=== PATIENT | male | born 1970 | race African-American/Black ===

== ENCOUNTER 2016-05-01 15:52 | Emergency (ER) ==
[2016-05-01] MEDS ORDERED: PHENERGAN IM ONE (17:58)
[2016-05-01] MEDS ORDERED: NUBAIN IM ONE (17:58)
--- NOTE | 2016-05-01 18:02 | PROVIDER DOCUMENTATION ---
HPI-EENT General - General Chief Complaint: Earache Stated Complaint: HEADACHE Time Seen by Provider: 05/01/16 17:51 Source: patient Allergies/Adverse Reactions: Patient Allergies Allergy/AdvReac Type Severity Reaction Status Date / Time No Known Allergies Allergy Verified 05/01/16 16:09 - History of Present Illness-EENT General Nature of Presenting Problem: This pt, who has a hx of migraines, presents today c complaints of R sided ear pain and migraine. He reports that he believes that his ear is infected which is making his migraine worse. He has tried taking alleve at home but this is not helping his symptoms. No other issues or complaints. EENT Location: reports: ear (R) Quality of Pain: reports: aching Severity: reports: moderate Onset/Duration: reports: 1 week ago Timing: reports: still present Prearrival Treatment: Initiated over the counter meds Similar Symptoms Previously?: Yes (migraine) Recently seen or treated by another doctor?: No Review of Systems - Adult - REVIEW OF SYSTEMS - ADULT Constitutional: reports: no symptoms reported. denies: chills, fever Eyes: reports: no symptoms reported. denies: discharge, dry eyes Ears, Nose, Mouth & Throat: reports: ear pain. denies: ear discharge, sinus problem, nose pain Cardiovascular: reports: no symptoms reported. denies: chest pain, edema Respiratory: reports: no symptoms reported. denies: chronic cough, cough Gastrointestinal: reports: no symptoms reported. denies: abdominal pain, hematemesis Genitourinary: reports: no symptoms reported. denies: dysuria, discharge Musculoskeletal: reports: no symptoms reported. denies: bone pain, back pain Integumentary: reports: no symptoms reported. denies: hives, hair loss Neurological: reports: headache/migraines. denies: ataxia, dizziness/vertigo Psychiatric: reports: no symptoms reported. denies: anxiety, anti-depressant use Endocrine: reports: no symptoms reported Hematologic/Lymphatic: reports: no symptoms reported Allergic/Immunologic: reports: no symptoms reported All Other Systems: Reviewed and Negative Past History - Adult - PAST MEDICAL HISTORY-ADULT Review of Records: reports: Old Records Reviewed, Nursing Assessment Review, Medications Reviewed, Social history reviewed & non-contributory. Major Childhood Illnesses: reports: denies history Cardiovascular: reports: denies history Respiratory: reports: denies history Gastrointestinal: reports: denies history Obstetrical/Gynecological: reports: denies history Genitourinary: reports: denies history Musculoskeletal: reports: denies history Neurological: reports: denies history Endocrine/Immune: reports: denies history Other Conditions: reports: denies history Physical Exam- EENT - Physical Exam EENT Initial Vital Signs Reviewed: Yes General Appearance: appears well, alert, no apparent distress Eye Exam: bilateral eye: normal inspection, PERRL, EOMI Ear Exam: right ear: erythema, swelling, tenderness, TM red, left ear: canal normal, TM normal, bilateral ear: auricle normal Nasal Exam: normal inspection Throat Exam: normal mouth inspection, pharynx normal Neck: non-tender, full range of motion, supple, normal inspection. negative: limited range of motion, lymphadenopathy, meningismus Respiratory: chest non-tender, lungs clear, normal breath sounds, no pleuratic chest pain, no respiratory distress, no accessory muscle use. negative: respiratory distress, decreased breath sounds, accessory muscle use Cardiovascular: normal peripheral pulses, regular rate, rhythm, no edema, no gallop, no JVD, no murmur. negative: bradycardia, tachycardia Abdominal Exam: normal bowel sounds, non tender, soft, no organomegaly, no pulsatile mass Lymphatic: no adenopathy Back Exam: normal inspection, no CVA tenderness, no vertebral tenderness Extremity: normal range of motion, non-tender, normal gait, normal inspection, no pedal edema, no calf tenderness, normal capillary refill, pelvis stable Integumentary: normal color, normal turgor, warm/dry Neurologic: user support analyst II-XII nml as tested, no motor/sensory deficits. negative: facial droop, focal weakness, motor weakness, sensory deficit Psych/Mental Status: AL, normal mood/affect, normal thought content, normal thought process, oriented x 3 Progress - PLAN OF CARE/RESULTS Progress/Plan/Lab Results: Orders Category Date Time Status Nalbuphine [Nubain] Med 05/01/16 17:58 Discontinued 10 mg IM NOW ONE Promethazine [Phenergan] Med 05/01/16 17:58 Discontinued 25 mg IM NOW ONE Vital Signs Temp Pulse Resp BP Pulse Ox 05/01/16 16:05 99.2 F 58 L 18 137/82 100 No Known Allergies Allergy (Verified 05/01/16 16:09) No Home Medications 05/01/16 Departure - Departure Time of Disposition Order: 18:01 DIAGNOSIS: Otitis media Qualifiers: Otitis media type: in diseases classified elsewhere Laterality: right Qualified Code(s): H67.1 - Otitis media in diseases classified elsewhere, right ear Migraine Qualifiers: Migraine type: unspecified Status migrainosus presence: without status migrainosus Intractability: not intractable Qualified Code(s): G43.909 - Migraine, unspecified, not intractable, without status migrainosus Disposition: HOME 01 Certified Medical Emergency: Urgent Condition: Good Additional Instructions: Take medication as prescribed. Follow up with your primary care provider. ED Follow Up Instructions: You have been treated by a care provider in the Emergency Department. These instructions are being provided to you so you can have an understanding of how to care for yourself upon discharge. Upon discharge from the Emergency Department, you are responsible for making arrangements for follow-up care by a physician of your choice. Take all prescribed medications as directed. Return to the Emergency Department immediately for any new or worsening symptoms. You may call the Physician Referral phone number at [phone] to obtain a list of Physicians who are taking new patients. Prescriptions: Amoxicillin [Amoxil] 500 mg PO BID #10 capsule Prochlorperazine Maleate [Compazine] 5 mg PO Q4H PRN PRN #10 tablet PRN Reason: Headaches Omeprazole [Prilosec] 20 mg PO DAILY@0700 #20 capsule Attestation - Physician/ Mid-level Attestation Patient care was provided by Mid-level provider (INSPECTOR RU[employer]ER ST[employer] DIE/PA):: Yes Mid-level provider:: Hayden Rutherford Mid-level documentation review:: The Mid-level provider documentation, treatment plan and medical decision making was reviewed by the physician who agrees with all treatment and medical decision making by the P.
[2016-05-01 18:21] VITALS: BP 158/92
== END 2016-05-01 18:40 | disposition home or self-care (01) ==
LOC: P.ED 15:52
DX: G43.909 Migraine, unspecified, not intractable, without status migrainosus (principal); H67.1 Otitis media in diseases classified elsewhere, right ear; H92.01 Otalgia, right ear; R51 Headache
CPT/HCPCS: 96372; J2300; J2550